=== PATIENT | female | born 1980 | race Caucasian/White ===

== ENCOUNTER 2017-05-19 19:45 | Emergency (ER) | payer OTHER ==
[2017-05-19 23:21] VITALS: BP 130/87
== END 2017-05-19 23:21 | disposition home or self-care (01) ==
LOC: ED 19:45
DX: S90.122A Contusion of left lesser toe(s) without damage to nail, initial encounter (principal); W22.8XXA Striking against or struck by other objects, initial encounter; Y93.89 Activity, other specified; Y99.8 Other external cause status; Y92.89 Other specified places as the place of occurrence of the external cause
CPT/HCPCS: J1885